=== PATIENT | male | born 1945 | race Caucasian/White ===

== ENCOUNTER 2016-12-01 15:25 | Emergency (ER) | payer OTHER, MEDICARE ==
[~2016-12-01] VITALS: Ht 172.7 cm; Wt 67.5 kg
[2016-12-01 15:35] VITALS: TEMP 36.5; Ht 172.7 cm; Wt 67.5 kg
[2016-12-01] MEDS ORDERED: LISI40TA PO (15:55)
[2016-12-01] MEDS ORDERED: CARV25TA2 PO (15:55)
[2016-12-01] MEDS ORDERED: APIX1TAB3 PO (15:55)
[2016-12-01] MEDS ORDERED: CRS/10 PO (15:55)
[2016-12-01 15:56] LABS: URINE APPEARANCE CLOUDY (CLEAR); URINE BILIRUBIN NEG (NEG); URINE COLOR YELLOW; URINE NITRITE NEG (NEG); URINE PH 5.5 (4.5-7.5); URINE SPECIFIC GRAVITY 1.022 (1.000-1.030); UROBILINOGEN NEG (NEG); ZZUR CULT IF INDIC CLEAN CATCH YES
[2016-12-01] MEDS ORDERED: HYDR25TA4 PO (15:56)
[2016-12-01 15:58] LABS: MANUAL MICROSCOPIC REQUIRED? NO; REVIEW REQ? NO
[2016-12-01] MEDS ORDERED: AMOX875T PO (16:34)
[2016-12-01] MEDS ORDERED: AMOXICILLIN/CLAVULANATE TAB 875 MG TAB PO ONE ×2 (17:00→21:00)
[2016-12-01 17:03] VITALS: BP 165/101; PULSE 87; O2SAT 97
--- NOTE | 2016-12-01 20:08 | EMERGENCY ROOM VISIT NOTE ---
History Report prepared by Marleny: Shari Stanley Under the Supervision of: Dr. Maykel Davis M.D. First contact with patient: 15:38 Chief Complaint: UNABLE TO VOID Stated Complaint: CAN NOT VOID Nursing Triage Summary: Pt ambulatory to triage. Pt states, "In September I had TURP and ever since then I could pee, but I would leak. I would have blood in my urine every once in awhile. Then it became harder and harder to pee. Recently I would just dribble, I don't think I would empty my bladder. Today I couldn't pee at all. The last time I peed this morning was about 0800. I tried to pee for two hours. I went as soon as I got here though." History of Present Illness The patient is a 71 year old male who presents to the Emergency Room with complaints of an episode of urinary symptoms starting today. The patient states that he has a history of kidney stones and had an operation in September to remove some. H reports that during the surgery they noticed his enlarged prostate and took a stone out of his bladder. He reports that following the surgery he was able to urinate well. He states that over time he noticed some blood in his urine and a decreased amount. He states that his urologist and PCP stated that this is typical and could be some scar tissue. He reports they told him it just needs time to heal. The patient reports that he is from [place] and was visiting his daughter in [place]. He states that while driving, he would stop to urinate and noticed he couldn't. He states that a pressure started to build in his abdomen and he felt that he was unable to empty his bladder. He reports that he went to [email or web address] first and they sent him here. He reports that relaxing helped relieve some of the pressure. He notes that he could not urinate when he first got here, but was able to for a sample in triage and again once he got to his room. The patient denies fever, chills, nausea, vomiting, numbness, weakness, chest pain, shortness of breath, and burning with urination. He notes he is on a blood thinner for atrial fibrillation. Source of History: patient Onset: today Position: other (global) Quality: pressure Timing: other (episode) Modifying Factors (Relieving): other (relaxing) Associated Symptoms: No fevers, No chills, No chest pain, No SOB, No nausea , No vomiting, No weakness, No numbness Note: The patient denies burning with urination. Review of Systems See HPI for pertinent positives & negatives. A total of 10 systems reviewed and were otherwise negative. Past Medical & Surgical Medical Problems: (1) Atrial fibrillation (2) Kidney stones Old medical records were reviewed. Nurse's notes were reviewed and I agree with. Family History No significant family history Social History Smoking Status: Former Smoker Marital Status: Housing Status: lives alone Current/Historical Medications Scheduled Amoxicillin & Pot Clavulanate (Augmentin 875-125 mg), 875 MG PO BID Apixaban (Eliquis), 5 MG PO BID Carvedilol (Coreg), 50 MG PO BID Lisinopril (Zestril), 40 MG PO BID Rosuvastatin Calcium (Crestor), 10 MG PO DAILY Scheduled PRN Hydrochlorothiazide (Hctz), 25 MG PO DAILY PRN for Blood Pressure Allergies Coded Allergies: No Known Allergies (Unverified , 12/01/16) Physical Exam Vital Signs Date Time Temp Pulse Resp B/P (MAP) Pulse Ox O2 Delivery O2 Flow Rate FiO2 12/01/16 17:03 87 16 165/101 97 12/01/16 16:18 92 16 141/84 97 Room Air 12/01/16 15:35 36.5 71 18 145/97 94 Room Air Physical Exam General: Well developed well nourished in no acute distress, breathing comfortably on room air. Normal speech. Non-ill appearing older male. HEENT: Normal cephalic atraumatic. Pupils are equal round and reactive to light. Extraocular movements are intact. Oropharynx is pink with moist mucous membranes. No swelling of the mouth lips or tongue. Neck: Supple with a midline trachea. No meningeal signs or stiffness, no JVD or bruits. No Stridor. Chest: Clear to auscultation bilaterally. No wheezes or rhonchi. No increased work of breathing. Heart: regular rate and rhythm. Abdomen: Soft nontender, nondistended without rebound guarding or rigidity. Bladder does not feel distended. Extremities: No cyanosis clubbing or edema. No calf tenderness or assymetry Spine/Back. Non tender to palpation. No CVA tenderness Skin: Good turgor without rashes. Neurologic exam: Cranial nerves two through 12 are intact. Motor and sensation are intact and symmetrical throughout. Medical Decision & Procedures Laboratory Results Test 12/01/16 15:36 Urine Color YELLOW Urine Appearance CLOUDY (CLEAR) Urine pH 5.5 (4.5-7.5) Urine Specific [place] 1.022 (1.000-1.030) Urine Protein 1+ (NEG) Urine Glucose (UA) NEG (NEG) Urine Ketones NEG (NEG) Urine Occult Blood 3+ (NEG) Urine Nitrite NEG (NEG) Urine Bilirubin NEG (NEG) Urine Urobilinogen NEG (NEG) Urine Leukocyte Esterase SMALL (NEG) Urine WBC (Auto) >30 /hpf (0-5) Urine RBC (Auto) >30 /hpf (0-4) Urine Hyaline Casts (Auto) 1-5 /lpf (0-5) Urine Epithelial Cells (Auto) 5-10 /lpf (0-5) Urine Bacteria (Auto) NEG (NEG) Laboratory studies as stated above per my review. Medications Administered Medications (Trade) Dose Ordered Sig/Javier Route Start Time Stop Time Status Last Admin Dose Admin Amoxicillin/ Clavulanate Potassium (Augmentin Tab) 875 mg 1700 ONCE PO 12/01/16 17:00 12/01/16 17:01 DC 12/01/16 17:02 875 MG ED Course 1544: Past medical records reviewed. The patient was evaluated in room C1B, and a complete history and physical examination were performed. 1632: Upon reevaluation, the patient is resting comfortably. I discussed the results and treatment plan with him. He verbalized agreement of the treatment plan. The patient was discharged home. 2100: Ordered Augmentin Tab 875 mg PO. Medical Decision Differential diagnoses include urinary retention, UTI. This patient comes in as described above. He has been having problems urinating today . he does have a history of BPH and TURP earlier this year. He was traveling. He has no new medications including [id number] medications. Shortly after arriving here, he urinated then urinated again. He says he feels findings had no dysuria or hematuria or back pain or fever or any systemic complaints. His urinalysis does suggest a UTI with a backup culture pending. We did a bladder scan there is less than 50 mL residual so he is not retaining. He has no neurologic deficits and nothing to suggest cauda equina syndrome. I will start him on Augmentin 875 mg twice a day for 7 days and was given the first dose here. He is driving home to [place] and I recommended him to follow-up with his doctor Friday for recheck. Return if: difficulty urinating, fever or chills, any new problems or concerns. Medication Reconcilliation Current Medication List: was personally reviewed by me Blood Pressure Screening Patient's blood pressure: Elevated blood pressure Blood pressure disposition: Elevated BP felt to be situational Impression Primary Impression: UTI (urinary tract infection) Additional Impression: Urinary retention Scribe Attestation The scribe's documentation has been prepared under my direction and personally reviewed by me in its entirety. I confirm that the note above accurately reflects all work, treatment, procedures, and medical decision making performed by me. Departure Information Dispostion Home / Self-Care Prescriptions Amoxicillin & Pot Clavulanate (Augmentin 875-125 mg) 1 Tab Tab 875 MG PO BID for 7 Days, #14 TAB Prov: Maykel Davis M.D. 12/01/16 Referrals No Doctor, Assigned (PCP) Forms HOME CARE DOCUMENTATION FORM, IMPORTANT VISIT INFORMATION, WORK / SCHOOL INSTRUCTIONS Patient Instructions My [facility] Additional Instructions Rest. Drink plenty of fluids. Use Augmentin 875 mg twice a day for 7 days Follow-up with your doctor or urologist on Friday or Friday Return to the ER if: Difficulty urinating, fever or chills, back pain, worsening of symptoms, any new problems or concerns Problem Qualifiers
== END 2016-12-01 17:04 | disposition home or self-care (01) ==
LOC: C.EDB 15:27 → C.EDC 17:04
DX: N39.0 Urinary tract infection, site not specified (principal); R33.9 Retention of urine, unspecified; I48.91 Unspecified atrial fibrillation; Z87.891 Personal history of nicotine dependence